=== PATIENT | female | born 1965 | race Caucasian/White ===

== ENCOUNTER 2020-10-16 13:00 | Emergency (ER) | payer OTHER ==
[2020-10-16 13:14] VITALS: TEMP 98.6
--- NOTE | 2020-10-16 13:32 | ED ---
General Adult HPI - General Source: patient Mode of arrival: wheelchair Limitations: no limitations <Kieran Green Gautam - Last Filed: 10/16/20 13:31> <Elgin Germain Yaw - Last Filed: 10/16/20 17:45> - General Chief complaint: Psychiatric Symptoms Stated complaint: drug withdrawals Time Seen by Provider: 10/16/20 13:17 - History of Present Illness Initial comments: Dictation was produced using [employer] dictation software. please excuse any grammatical, word or spelling errors. Chief Complaint: 55-year-old female with history of polysubstance abuse presents with sister for drug rehabilitation History of Present Illness: 55-year-old female she is brought in by her sister. Patient is a poor historian. She states that she does abuse a lot of illicit substances. Sister who brought patient to the emergency department reports that patient has been a threat to herself. She has been trying to detoxify herself from drugs. She is a long-standing history of using heroin, methamphetamines, cocaine etc. She currently lives with her brother however because of her clinical condition states that she's not stable to be at home with them. Patient is size any suicidal or homicidal ideation. She does have visual hallucinations where she sees things moving. Has any auditory or tactile hallucinations. The ROS documented in this emergency department record has been reviewed and confirmed by me. Those systems with pertinent positive or negative responses have been documented in the HPI. All other systems are other negative and/or noncontributory. PHYSICAL EXAM: General Impression: Alert and oriented x3, not in acute distress HEENT: Normocephalic atraumatic, extra-ocular movements intact, pupils equal and reactive to light bilaterally, mucous membranes moist. Cardiovascular: Heart regular rate and rhythm Chest: Able to complete full sentences, no retractions, no tachypnea Abdomen: abdomen soft, non-tender, non-distended, no organomegaly Musculoskeletal: Pulses present and equal in all extremities, no peripheral edema Motor: no focal deficits noted Neurological: CN II-XII grossly intact, no focal motor or sensory deficits noted Skin: Intact with no visualized rashes Psych: Tangential and pressured speech ED course: 55-year-old female with illicit drug abuse history presents with clinical presentation consistent with nonspecific psychosis. Vital signs upon arrival are within acceptable limits. Sister signed petition on behalf of the patient. She states that she is a threat to herself and will need medical stabilization. Patient has pressured and tangential speech. (Kieran Green) - Related Data Home Medications Medication Instructions Recorded Confirmed Atorvastatin [Lipitor] 20 mg PO HS 10/16/20 10/16/20 Glimepiride [Amaryl] 2 mg PO DAILY 10/16/20 10/16/20 lisinopriL [Zestril] 2.5 mg PO DAILY 10/16/20 10/16/20 metFORMIN HCL 1,000 mg PO BID-W/MEALS 10/16/20 10/16/20 Allergies Allergy/AdvReac Type Severity Reaction Status Date / Time No Known Allergies Allergy Verified 10/16/20 13:14 Review of Systems ROS Other: All systems not noted in ROS Statement are negative. <Kieran Green - Last Filed: 10/16/20 13:31> ROS Other: All systems not noted in ROS Statement are negative. <Elgin Germain - Last Filed: 10/16/20 17:45> ROS Statement: Those systems with pertinent positive or pertinent negative responses have been documented in the HPI. Past Medical History Past Medical History: Diabetes Mellitus, GERD/Reflux, Hyperlipidemia, Hypertension History of Any Multi-Drug Resistant Organisms: None Reported Past Surgical History: Hysterectomy Past Psychological History: Anxiety, Depression Smoking Status: Current every day smoker Past Alcohol Use History: None Reported Past Drug Use History: Cocaine, Heroin, Marijuana, Methamphetamine <Kieran Green - Last Filed: 10/16/20 13:31> General Exam Limitations: no limitations <Kieran Green - Last Filed: 10/16/20 13:31> Course <Elgin Germain - Last Filed: 10/16/20 17:45> Vital Signs 10/16/20 10/16/20 13:09 16:00 Temperature 98.6 F 98.6 F Pulse Rate 99 86 Respiratory 16 18 Rate Blood Pressure 134/74 127/89 O2 Sat by Pulse 96 99 Oximetry - Reevaluation(s) Reevaluation #1: 10/16/20 16:39 Patient medically cleared for EPS. (Elgin Germain) Medical Decision Making - Lab Data Result diagrams: 10/16/20 13:35 10/16/20 16:07 <Elgin Germain - Last Filed: 10/16/20 17:45> - Medical Decision Making Patient had been medically cleared and evaluated by EPS. She does have an issue with substance abuse but is not suicidal or homicidal. She's been cleared for discharge. She'll be given outpatient referrals. (Elgin Germain) - Lab Data Lab Results 10/16/20 10/16/20 10/16/20 Range/Units 13:35 13:35 13:35 WBC 9.5 (3.8-10.6) k/uL RBC 4.42 (3.80-5.40) m/uL Hgb 13.9 (11.4-16.0) gm/dL Hct 39.5 (34.0-46.0) % MCV 89.4 (80.0-100.0) fL MCH 31.5 (25.0-35.0) pg MCHC 35.2 (31.0-37.0) g/dL RDW 12.1 (11.5-15.5) % Plt Count 324 (150-450) k/uL MPV 7.1 Neutrophils % 80 % Lymphocytes % 12 % Monocytes % 6 % Eosinophils % 1 % Basophils % 1 % Neutrophils # 7.6 (1.3-7.7) k/uL Lymphocytes # 1.2 (1.0-4.8) k/uL Monocytes # 0.5 (0-1.0) k/uL Eosinophils # 0.1 (0-0.7) k/uL Basophils # 0.1 (0-0.2) k/uL Sodium 132 L (137-145) mmol/L Potassium 3.6 (3.5-5.1) mmol/L Chloride 90 L (98-107) mmol/L Carbon Dioxide 28 (22-30) mmol/L Anion Gap 14 mmol/L BUN 43 H (7-17) mg/dL Creatinine 1.10 H (0.52-1.04) mg/dL Est GFR (CKD-EPI)AfAm 65 (>60 ml/min/1.73 sqM) Est GFR (CKD-EPI)NonAf 57 (>60 ml/min/1.73 sqM) Glucose 408 H (74-99) mg/dL Lactic Ac Sepsis Rflx Plasma Lactic Acid Carlos (0.7-2.0) mmol/L Calcium 10.3 H (8.4-10.2) mg/dL Creatine Kinase 595 H (30-135) U/L Urine Opiates Screen Not Detected (NotDetected) Ur Oxycodone Screen Not Detected (NotDetected) Urine Methadone Screen Not Detected (NotDetected) Ur Propoxyphene Screen Not Detected (NotDetected) Ur Barbiturates Screen Not Detected (NotDetected) U Tricyclic Antidepress Not Detected (NotDetected) Ur Phencyclidine Scrn Not Detected (NotDetected) Ur Amphetamines Screen Detected H (NotDetected) U Methamphetamines Scrn Detected H (NotDetected) U Benzodiazepines Scrn Not Detected (NotDetected) Urine Cocaine Screen Detected H (NotDetected) U Marijuana (THC) Screen Detected H (NotDetected) Coronavirus (PCR) (Not Detectd) 10/16/20 10/16/20 10/16/20 Range/Units 13:35 13:35 14:10 WBC (3.8-10.6) k/uL RBC (3.80-5.40) m/uL Hgb (11.4-16.0) gm/dL Hct (34.0-46.0) % MCV (80.0-100.0) fL MCH (25.0-35.0) pg MCHC (31.0-37.0) g/dL RDW (11.5-15.5) % Plt Count (150-450) k/uL MPV Neutrophils % % Lymphocytes % % Monocytes % % Eosinophils % % Basophils % % Neutrophils # (1.3-7.7) k/uL Lymphocytes # (1.0-4.8) k/uL Monocytes # (0-1.0) k/uL Eosinophils # (0-0.7) k/uL Basophils # (0-0.2) k/uL Sodium (137-145) mmol/L Potassium (3.5-5.1) mmol/L Chloride (98-107) mmol/L Carbon Dioxide (22-30) mmol/L Anion Gap mmol/L BUN (7-17) mg/dL Creatinine (0.52-1.04) mg/dL Est GFR (CKD-EPI)AfAm (>60 ml/min/1.73 sqM) Est GFR (CKD-EPI)NonAf (>60 ml/min/1.73 sqM) Glucose (74-99) mg/dL Lactic Ac Sepsis Rflx Y Plasma Lactic Acid Carlos 2.7 H* (0.7-2.0) mmol/L Calcium (8.4-10.2) mg/dL Creatine Kinase (30-135) U/L Urine Opiates Screen (NotDetected) Ur Oxycodone Screen (NotDetected) Urine Methadone Screen (NotDetected) Ur Propoxyphene Screen (NotDetected) Ur Barbiturates Screen (NotDetected) U Tricyclic Antidepress (NotDetected) Ur Phencyclidine Scrn (NotDetected) Ur Amphetamines Screen (NotDetected) U Methamphetamines Scrn (NotDetected) U Benzodiazepines Scrn (NotDetected) Urine Cocaine Screen (NotDetected) U Marijuana (THC) Screen (NotDetected) Coronavirus (PCR) Not Detected (Not Detectd) 10/16/20 10/16/20 Range/Units 16:07 16:07 WBC (3.8-10.6) k/uL RBC (3.80-5.40) m/uL Hgb (11.4-16.0) gm/dL Hct (34.0-46.0) % MCV (80.0-100.0) fL MCH (25.0-35.0) pg MCHC (31.0-37.0) g/dL RDW (11.5-15.5) % Plt Count (150-450) k/uL MPV Neutrophils % % Lymphocytes % % Monocytes % % Eosinophils % % Basophils % % Neutrophils # (1.3-7.7) k/uL Lymphocytes # (1.0-4.8) k/uL Monocytes # (0-1.0) k/uL Eosinophils # (0-0.7) k/uL Basophils # (0-0.2) k/uL Sodium 132 L (137-145) mmol/L Potassium 3.5 (3.5-5.1) mmol/L Chloride 93 L (98-107) mmol/L Carbon Dioxide 30 (22-30) mmol/L Anion Gap 9 mmol/L BUN 39 H (7-17) mg/dL Creatinine 0.83 (0.52-1.04) mg/dL Est GFR (CKD-EPI)AfAm >90 (>60 ml/min/1.73 sqM) Est GFR (CKD-EPI)NonAf 80 (>60 ml/min/1.73 sqM) Glucose 295 H (74-99) mg/dL Lactic Ac Sepsis Rflx Plasma Lactic Acid Carlos 1.3 (0.7-2.0) mmol/L Calcium 10.0 (8.4-10.2) mg/dL Creatine Kinase (30-135) U/L Urine Opiates Screen (NotDetected) Ur Oxycodone Screen (NotDetected) Urine Methadone Screen (NotDetected) Ur Propoxyphene Screen (NotDetected) Ur Barbiturates Screen (NotDetected) U Tricyclic Antidepress (NotDetected) Ur Phencyclidine Scrn (NotDetected) Ur Amphetamines Screen (NotDetected) U Methamphetamines Scrn (NotDetected) U Benzodiazepines Scrn (NotDetected) Urine Cocaine Screen (NotDetected) U Marijuana (THC) Screen (NotDetected) Coronavirus (PCR) (Not Detectd) Disposition <Kieran Green - Last Filed: 10/16/20 13:31> Is patient prescribed a controlled substance at d/c from ED?: No Time of Disposition: 17:44 <Elgin Germain - Last Filed: 10/16/20 17:45> Clinical Impression: Drug-induced psychotic disorder Disposition: HOME SELF-CARE Condition: Fair Instructions (If sedation given, give patient instructions): Methamphetamine Abuse (ED) Additional Instructions: Patient will follow-up with [facility] Referrals: None,Stated [REFERRING] - 1-2 days oJe Kapoor [STAFF PHYSICIAN] - 1-2 days
[2020-10-16 13:53] LABS: Basophils # (A) 0.1 k/uL (0-0.2); Basophils % (A) 1 %; Eosinophils # (A) 0.1 k/uL (0-0.7); Eosinophils % (A) 1 %; HCT 39.5 % (34.0-46.0); HGB 13.9 gm/dL (11.4-16.0); Lymphocytes # (A) 1.2 k/uL (1.0-4.8); Lymphocytes % (A) 12 %; MCH 31.5 pg (25.0-35.0); MCHC 35.2 g/dL (31.0-37.0); MCV 89.4 fL (80.0-100.0); Mean Platelet Volume 7.1; Monocytes # (A) 0.5 k/uL (0-1.0); Monocytes % (A) 6 %; Neutrophils # (A) 7.6 k/uL (1.3-7.7); Neutrophils % (A) 80 %; Platelet Count 324 k/uL (150-450); RBC 4.42 m/uL (3.80-5.40); RDW 12.1 % (11.5-15.5); WBC 9.5 k/uL (3.8-10.6)
[2020-10-16] MEDS ORDERED: SODIUM CHLORIDE 0.9% 1,000 ML IV STA (14:18)
[2020-10-16 14:39] LABS: Calcium 10.3 mg/dL (8.4-10.2); Potassium 3.6 mmol/L (3.5-5.1)
[2020-10-16 16:20] VITALS: BP 127/89; PULSE 86; RESP 18
[2020-10-16 16:35] LABS: African American GFR (CKD) >90 (>60 ml/min/1.73 sqM); Anion Gap 9 mmol/L; Blood Urea Nitrogen 39 mg/dL (7-17); Carbon Dioxide 30 mmol/L (22-30); Chloride 93 mmol/L (98-107); Glucose 295 mg/dL (74-99); Non-African American GFR(CKD) 80 (>60 ml/min/1.73 sqM); Potassium 3.5 mmol/L (3.5-5.1); Sodium 132 mmol/L (137-145)
[2020-10-16 17:33] LABS: Amphetamine Screen,Urine Detected (NotDetected); Barbiturate Screen,Urine Not Detected (NotDetected); Benzodiazepines Screen,Urine Not Detected (NotDetected); Cocaine Screen,Urine Detected (NotDetected); Methadone Screen, Urine Not Detected (NotDetected); Opiate Screen,Urine Not Detected (NotDetected); Oxycodone Screen, Urine Not Detected (NotDetected); Phencyclidine Screen,Urine Not Detected (NotDetected); Tricyclic Antidepressant,Urine Not Detected (NotDetected); Urn Cannabinoid Scrn Detected (NotDetected)
== END 2020-10-16 18:44 | disposition home or self-care (01) ==
LOC: EC 13:00
DX: F19.951 Other psychoactive substance use, unspecified with psychoactive substance-induced psychotic disorder with hallucinations (principal); E11.9 Type 2 diabetes mellitus without complications; E78.5 Hyperlipidemia, unspecified; F17.200 Nicotine dependence, unspecified, uncomplicated; I10 Essential (primary) hypertension; F41.9 Anxiety disorder, unspecified; F32.9 Major depressive disorder, single episode, unspecified; F12.90 Cannabis use, unspecified, uncomplicated; Z79.84 Long term (current) use of oral hypoglycemic drugs; Z79.899 Other long term (current) drug therapy
CPT/HCPCS: 36415; 80048; 80306; 82550; 83605; 85025; 87635; 96360; 99283; 99284

== ENCOUNTER → 2023-02-11 | Outpatient (CLI) | payer OTHER ==
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
== END | disposition home or self-care (01) ==
LOC: RADMRIMAIN 13:08
PROVIDERS: ATTEND Orthopaedic Surgery
DX: M50.221 Other cervical disc displacement at C4-C5 level (principal); M50.322 Other cervical disc degeneration at C5-C6 level; M47.812 Spondylosis without myelopathy or radiculopathy, cervical region; M48.02 Spinal stenosis, cervical region; M99.71 Connective tissue and disc stenosis of intervertebral foramina of cervical region
CPT/HCPCS: 72141

== ENCOUNTER → 2023-05-20 | Outpatient (CLI) | payer OTHER ==
[2023-05-20 13:02] VITALS: BP 147/89; PULSE 94; RESP 16; TEMP 98.6
--- NOTE | 2023-05-20 14:32 | P.PAINPG ---
Objective - Vital Signs Vital signs: Intake & Output 05/19/23 05/20/23 05/20/23 18:59 06:59 18:59 Weight 77.111 kg PQRS Measure Charge Sheet Comment: HISTORY OF PRESENT ILLNESS: A 58 yr old female as a referral from [facility] presents today w severe and chronic neck pain x 6 mo secondary to DDD, spondylosis and facet arthropathy without myelopathy for evaluation. Pt states pain level is provoked at 8/10 in intensity, constant, localized in the mid to lower cervical spine, predominantly axial, burning in character w occasional shooting pain towards the shoulders and UEs. Pain is provoked by cold weather, walking, forward flexion. Pain is alleviated by PT integrated w massage x 6 wks which ended in Apr 2023, alternating heat & ice, medications (Flexeril, Lyrica, Mobic), topical, repositioning and rest. Cervical disability pain score at 21. PMH: OA, NIDDM II, GERD, Hyperlipidemia, HTN, MDD/ Anxiety PSH: Hysterectomy SH: Daily tobacco use, No ETOH abuse, Hx of Cocaine/ Heroin/ Methamphetamine Abuse, +Cannabis Use FH: Non contributory All: See list Meds: See list REVIEW OF ORGAN SYSTEMS: CONSTITUTIONAL: No fevers or chills. No recent weight loss. NEUROLOGICAL: + numbness and tingling along the distal extremities. No seizure disorders or headaches. MUSCULOSKELETAL: + pain PSYCHIATRIC: Denies current depression or suicidal thoughts. Physical Examinations : Constitutional : Cooperative , not in acute distress . Neurologic : Cranial nerve II to XII intact. No focal neurological deficits. Psychiatric : alert & oriented x 3. Matching mood & appropriate affect. Judgment & insight intact. Musculoskeletal : Cervical Spine Motor strength in the deltoid and biceps: Normal right side. Normal Left side Motor strength biceps and the wrist extensors: Normal right side . Normal left side Motor strength in the triceps muscle: Normal right side. Normal left side Deep tendon reflexes: Normal at the biceps. Normal at Brachioradialis. Normal at triceps Vertebral body tenderness to deep palpation over Cervical facet loading test: positive bilaterally Spurling test: positive bilaterally Neck distraction test: positive bilaterally Rodríguez sign: positive bilaterally Lumbar spine Motor strength lower extremities ,thigh and legs 5/5 Right side , 5/5 Left side Deep tendon reflexes : Normal Knee Jerk. Normal Ankle Jerk Vertebral body tenderness over C6 Leslie Test positive over C6-C7 Lumbar facet Loading Test: positive Right / positive Left Range of motion of the lumbar spine Flexion 30 degrees, extension 10 degrees Straight Leg Raise test: Left/ Right positive at degrees Des test: positive right / positive left. Severe tenderness over the Sacroiliac joint on the Right / Left sides Gaenslen test: positive bilaterally Seated flexion test: positive bilaterally. Sacral spine : Severe tenderness over the Sacroiliac joint: right side / left side Range of motion: Flexion of the lumbar spine <60 degrees Range of motion: Extension of the lumbar spine <20 degrees Gaenslen's Test positive Des test: positive right side / left side Thigh Thrust Test Sacral Thrust Test Imaging: MRI noncontrast of the cervical spine from reviewed Assessment/ Plan : Cervical C4-C5 disc bulge, Cervical DDD Recommendation of NATY C6-C7 #1. May need a series of injections for optimal pain relief. Risks, benefits of procedure discussed and patient verbalized understanding. Admits to anti- coagulant use or medical history of diabetes. Protocol for discontinuation/ continuation of medications jyothi procedure discussed. Minimal anesthesia provided, if clinically indicated, consisting of Versed and Fentanyl. All questions answered. I have spent greater than 30 minutes on patient care today. Dr Pacheco was available by phone for the evaluation of this patient. The time was used to review the medical records including relevant urine studies and Prescription history (MAPs), review of the available imaging, evaluation and examination of the patient, coordination of care with the medical staff and if applicable referring physicians, as well as creation of the medical record Home Medications: Ambulatory Orders Atorvastatin [Lipitor] 20 mg PO HS 10/16/20 Glimepiride [Amaryl] 2 mg PO DAILY 10/16/20 lisinopriL [Zestril] 2.5 mg PO DAILY 10/16/20 metFORMIN HCL [Glucophage] 1,000 mg PO BID-W/MEALS 10/16/20 Controlled Substance Measures - Controlled Substance Measures Is patient prescribed a controlled substance at discharge?: No
== END ==
LOC: PNWHC3 12:16
PROVIDERS: ATTEND Specialist
DX: M54.12 Radiculopathy, cervical region (principal); M47.812 Spondylosis without myelopathy or radiculopathy, cervical region; M50.30 Other cervical disc degeneration, unspecified cervical region; M50.221 Other cervical disc displacement at C4-C5 level
CPT/HCPCS: 99211

== ENCOUNTER 2023-06-04 09:26 | Day surgery (SDC) | payer OTHER ==
[2023-06-03 13:42] VITALS: BMI 27.4
[2023-06-04] MEDS ORDERED: LACTATED RINGERS 1,000 ML IV SCH (09:30)
[2023-06-04 10:49] LABS: Glucose,Whole Blood 193 mg/dL (70-110)
[2023-06-04 10:54] VITALS: TEMP 97.4
[2023-06-04] MEDS ORDERED: IOPAMIDOL M200 10 ML VIAL ONE (10:59)
[2023-06-04] MEDS ORDERED: DEXAMETHASONE SOD PHOSPHATE 10 MG/ML 1 ML VIAL ONE (10:59)
--- NOTE | 2023-06-04 11:15 | P.PCN ---
Date of Procedure: 06/04/23 Procedure(s) Performed: . PROCEDURE 1. Cervical epidural steroid injection under fluoroscopic guidance, C6-7 (fluoroscopy images available in the radiology department ) 2. Cervical epidurogram. PREOPERATIVE DIAGNOSIS: 1- Cervical Degenerative Disc Diseases 2-cervical spondylosis with cervical Facet arthropathy without myelopathy.3-cervical spinal stenosis POSTOPERATIVE DIAGNOSIS: : 1- Cervical Degenerative Disc Diseases , 2-cervical spondylosis with cervical Facet arthropathy without myelopathy. 3-cervical spinal stenosis ANESTHESIA: Local anesthesia with lidocaine 1% 3 ml only EBL 0 PROCEDURE INDICATION: The patient with neck pain and radiculitis unresponsive to conservative treatment consents for procedure. PROCEDURE DESCRIPTION / TECHNIQUE: The patient was seen and identified in the preoperative area. Risks, benefits, complications, including but not limited to infections ,bleeding , allergic reactions to the medications ,and not complete pain releife, and alternatives were discussed with the patient, the patient agreed to proceed with the procedure and signed the consent. Patient was taken to the OR and time out was completed. The patient was placed in the prone position on the procedure table. A pillow was placed under the patients chest to increase the cervical interlaminar space. The cervical area was prepped and draped in the usual sterile fashion. Vital signs were closely monitored during the procedure. Using anterior-posterior fluoroscopy, the C6-7 interlaminar space was identified and the skin over this site was marked and then infiltrated with 1% lidocaine subcutaneously. Subsequently, a 20-gauge 3-1/2-inch Tuohy epidural needle was inserted and advanced toward the epidural space by means of the ``hanging-drop technique and guided by AP and lateral fluoroscopy. The correct needle position in the epidural space was verified with the injection of 2 mL of the water soluble contrast dye [id number] and observing an excellent epidurogram with the epidural spread of the dye, after negative aspiration for blood and CSF and in the absence of paresthesias. then, mixture containing 15 mg Dexamethasone and 2 ml of preservative-free normal saline injected and a washout of epidurogram was seen. Needle was withdrawn intact, skin was cleansed, and bandages were applied. Complications= none. Disposition= patient was placed in supine position and transferred to the recovery room area in stable condition and there was no evidence of upper or lower extremity motor or sensory deficit after the procedure patient was discharged from recovery room after discharge criteria met and home discharge instructions was given by the staff and patient will follow with the pain clinic in 2-4 weeks
[2023-06-04 11:45] VITALS: PULSE 81; RESP 20
--- NOTE | 2023-06-04 11:47 | FL ---
EXAMINATION TYPE: FL guided pain mgmt statistic Intraoperative/procedural fluoroscopic services were provided. Total fluoroscopy time is 2.5 seconds images to PACS. Please see the operative/procedural n ote for further details. DAP: [id number] [id number]
[2023-06-04 12:10] VITALS: BP 139/87
== END 2023-06-04 11:48 | disposition home or self-care (01) ==
LOC: ORPAIN 09:26
PROVIDERS: ATTEND Specialist
DX: M50.123 Cervical disc disorder at C6-C7 level with radiculopathy (principal); M47.22 Other spondylosis with radiculopathy, cervical region; M48.02 Spinal stenosis, cervical region; E11.9 Type 2 diabetes mellitus without complications
CPT/HCPCS: 62321; J1100; Q9966

== ENCOUNTER → 2023-06-24 | Outpatient (CLI) | payer OTHER ==
[2023-06-24 14:18] VITALS: BP 142/82; PULSE 84; RESP 15; TEMP 97.9
--- NOTE | 2023-06-24 14:36 | P.PAINPG ---
PQRS Measure Charge Sheet Comment: HISTORY OF PRESENT ILLNESS: A 58 yr old female presents today w severe and chronic neck pain x 6 mo secondary to DDD, spondylosis and facet arthropathy without myelopathy for evaluation s/p NATY C6-C7 #1. Pt states she experienced 80% pain relief x 1 wks s/p procedure. Pt states pain level is provoked at 8/10 in intensity, constant, localized in the mid to lower cervical spine, predominantly axial, burning in character w occasional shooting pain towards the shoulders and UEs. Pain is provoked by cold weather, walking, forward flexion. Pain is alleviated by PT integrated w massage x 6 wks which ended in Apr 2023, alternating heat & ice, medications, topical, repositioning and rest. Cervical disability pain score at 20. Interventional procedures include NATY C6-C7 x1 Medications include Flexeril, Lyrica, Mobic REVIEW OF ORGAN SYSTEMS: CONSTITUTIONAL: No fevers or chills. No recent weight loss. NEUROLOGICAL: + numbness and tingling along the distal extremities. No seizure disorders or headaches. MUSCULOSKELETAL: + pain PSYCHIATRIC: Denies current depression or suicidal thoughts. Physical Examinations : Constitutional : Cooperative , not in acute distress . Neurologic : Cranial nerve II to XII intact. No focal neurological deficits. Psychiatric : alert & oriented x 3. Matching mood & appropriate affect. Judgment & insight intact. Musculoskeletal : Cervical Spine Motor strength in the deltoid and biceps: Normal right side. Normal Left side Motor strength biceps and the wrist extensors: Normal right side . Normal left side Motor strength in the triceps muscle: Normal right side. Normal left side Deep tendon reflexes: Normal at the biceps. Normal at Brachioradialis. Normal at triceps Vertebral body tenderness to deep palpation over Cervical facet loading test: positive bilaterally Spurling test: positive bilaterally Neck distraction test: positive bilaterally Rodríguez sign: positive bilaterally Lumbar spine Motor strength lower extremities ,thigh and legs 5/5 Right side , 5/5 Left side Deep tendon reflexes : Normal Knee Jerk. Normal Ankle Jerk Vertebral body tenderness over C6 Leslie Test positive over C6-C7 Lumbar facet Loading Test: positive Right / positive Left Range of motion of the lumbar spine Flexion 30 degrees, extension 10 degrees Straight Leg Raise test: Left/ Right positive at degrees Des test: positive right / positive left. Severe tenderness over the Sacroiliac joint on the Right / Left sides Gaenslen test: positive bilaterally Seated flexion test: positive bilaterally. Sacral spine : Severe tenderness over the Sacroiliac joint: right side / left side Range of motion: Flexion of the lumbar spine <60 degrees Range of motion: Extension of the lumbar spine <20 degrees Gaenslen's Test positive Des test: positive right side / left side Thigh Thrust Test Sacral Thrust Test Imaging: MRI noncontrast of the cervical spine from reviewed Assessment/ Plan : Cervical C4-C5 disc bulge, Cervical DDD Recommendation of follow up w Dr Collins to explore additional treatment options. Diclofenac gel 3% apply BID for pain Disp 1 tube w 1 RF. Use, side effects, adverse reactions and safe storage discussed. All questions answered. I have spent greater than 30 minutes on patient care today. Dr Pacheco was available by phone for the evaluation of this patient. The time was used to review the medical records including relevant urine studies and Prescription history (MAPs), review of the available imaging, evaluation and examination of the patient, coordination of care with the medical staff and if applicable referring physicians, as well as creation of the medical record - Pain Location Bilateral Neck Non-Pharmacological Interventions: Heat, Position/Reposition Pharmacological Interventions: Epidural, Scheduled Medication PQRS Narrative: Hx Alcohol Use (MH) No Home Medications: Ambulatory Orders Atorvastatin [Lipitor] 20 mg PO HS 10/16/20 Glimepiride [Amaryl] 2 mg PO DAILY 10/16/20 lisinopriL [Zestril] 2.5 mg PO DAILY 10/16/20 metFORMIN HCL [Glucophage] 1,000 mg PO BID-W/MEALS 10/16/20 Cyclobenzaprine [Flexeril] 10 mg PO TID 06/03/23 DULoxetine HCL [Cymbalta] 60 mg PO DAILY 06/03/23 Empagliflozin [Jardiance] 25 mg PO DAILY 06/03/23 Meloxicam [Mobic] 7.5 mg PO DAILY 06/03/23 Prazosin HCl 1 mg PO HS 06/03/23 Prazosin HCl 2 mg PO HS 06/03/23 Pregabalin [Lyrica] 75 mg PO Q8H 06/03/23 Vitamin D (Unknown Dose) 1 tab PO DAILY 06/03/23 hydrOXYzine HCL [Atarax] 50 mg PO Q6H PRN 06/03/23 traZODone HCL [Desyrel] 50 mg PO HS 06/03/23 Diclofenac Sodium Gel [Voltaren 1% Gel] 100 gm TOPICAL BID 30 Days #1 each 06/24/23 Controlled Substance Measures - Controlled Substance Measures Is patient prescribed a controlled substance at discharge?: No
== END ==
LOC: PNWHC3 13:44
PROVIDERS: ATTEND Specialist
DX: M50.323 Other cervical disc degeneration at C6-C7 level (principal); M50.221 Other cervical disc displacement at C4-C5 level; F12.90 Cannabis use, unspecified, uncomplicated
CPT/HCPCS: 99211

== ENCOUNTER → 2023-07-23 | Outpatient (CLI) | payer OTHER ==
[2023-07-23 08:51] VITALS: BP 96/60; PULSE 76; RESP 15; TEMP 98.6
--- NOTE | 2023-07-23 12:50 | P.PAINPG ---
PQRS Measure Charge Sheet Comment: HISTORY OF PRESENT ILLNESS: A 58 yr old female presents today w severe and chronic neck pain x 6 mo secondary to DDD, spondylosis and facet arthropathy without myelopathy for evaluation s/p NATY C6-C7 #1. Pt states she experienced 80% pain relief x 1 wks s/p procedure. Pt states pain level is provoked at 8/10 in intensity, constant, localized in the mid to lower cervical spine, predominantly axial, burning in character w occasional shooting pain towards the shoulders and UEs. Pain is provoked by cold weather, walking, forward flexion. Pain is alleviated by PT integrated w massage x 6 wks which ended in Apr 2023, alternating heat & ice, medications, topical, repositioning and rest. Cervical disability pain score at 20. Interventional procedures include NATY C6-C7 x1 Medications include Flexeril, Lyrica, Mobic REVIEW OF ORGAN SYSTEMS: CONSTITUTIONAL: No fevers or chills. No recent weight loss. NEUROLOGICAL: + numbness and tingling along the distal extremities. No seizure disorders or headaches. MUSCULOSKELETAL: + pain PSYCHIATRIC: Denies current depression or suicidal thoughts. Physical Examinations : Constitutional : Cooperative , not in acute distress . Neurologic : Cranial nerve II to XII intact. No focal neurological deficits. Psychiatric : alert & oriented x 3. Matching mood & appropriate affect. Judgment & insight intact. Musculoskeletal : Cervical Spine BL Trapezius and Clavicular TTP, R> L Motor strength in the deltoid and biceps: Normal right side. Normal Left side Motor strength biceps and the wrist extensors: Normal right side . Normal left side Motor strength in the triceps muscle: Normal right side. Normal left side Deep tendon reflexes: Normal at the biceps. Normal at Brachioradialis. Normal at triceps Vertebral body tenderness to deep palpation over Cervical facet loading test: positive bilaterally Spurling test: positive bilaterally Neck distraction test: positive bilaterally Rodríguez sign: positive bilaterally Lumbar spine Motor strength lower extremities ,thigh and legs 5/5 Right side , 5/5 Left side Deep tendon reflexes : Normal Knee Jerk. Normal Ankle Jerk Vertebral body tenderness Leslie Test positive Lumbar facet Loading Test: positive Right / positive Left Range of motion of the lumbar spine Flexion 30 degrees, extension 10 degrees Straight Leg Raise test: Left/ Right positive at degrees Des test: positive right / positive left. Severe tenderness over the Sacroiliac joint on the Right / Left sides Gaenslen test: positive bilaterally Seated flexion test: positive bilaterally. Sacral spine : Severe tenderness over the Sacroiliac joint: right side / left side Range of motion: Flexion of the lumbar spine <60 degrees Range of motion: Extension of the lumbar spine <20 degrees Gaenslen's Test positive Des test: positive right side / left side Thigh Thrust Test Sacral Thrust Test Imaging: MRI noncontrast of the cervical spine from reviewed Assessment/ Plan : Cervical C4-C5 disc bulge, Cervical DDD Recommendation of Stellate Ganglion Nerve Block #1. May need a series o f injections for optimal pain relief. Risks, benefits of procedure discussed and pt verbalized understanding. Protocol for discontinuation/ continuation of medications jyothi procedure discussed. All questions answered. I have spent greater than 30 minutes on patient care today. Dr Pacheco was available by phone for the evaluation of this patient. The time was used to review the medical records including relevant urine studies and Prescription history (MAPs), review of the available imaging, evaluation and examination of the patient, coordination of care with the medical staff and if applicable referring physicians, as well as creation of the medical record PQRS Narrative: Hx Alcohol Use (MH) No Home Medications: Ambulatory Orders Atorvastatin [Lipitor] 20 mg PO HS 10/16/20 Glimepiride [Amaryl] 2 mg PO DAILY 10/16/20 lisinopriL [Zestril] 2.5 mg PO DAILY 10/16/20 metFORMIN HCL [Glucophage] 1,000 mg PO BID-W/MEALS 10/16/20 Cyclobenzaprine [Flexeril] 10 mg PO TID 06/03/23 DULoxetine HCL [Cymbalta] 60 mg PO DAILY 06/03/23 Empagliflozin [Jardiance] 25 mg PO DAILY 06/03/23 Meloxicam [Mobic] 7.5 mg PO DAILY 06/03/23 Prazosin HCl 1 mg PO HS 06/03/23 Prazosin HCl 2 mg PO HS 06/03/23 Pregabalin [Lyrica] 75 mg PO Q8H 06/03/23 Vitamin D (Unknown Dose) 1 tab PO DAILY 06/03/23 hydrOXYzine HCL [Atarax] 50 mg PO Q6H PRN 06/03/23 traZODone HCL [Desyrel] 50 mg PO HS 06/03/23 Diclofenac Sodium Gel [Voltaren 1% Gel] 100 gm TOPICAL BID 30 Days #1 each 06/24/23 Controlled Substance Measures - Controlled Substance Measures Is patient prescribed a controlled substance at discharge?: No
== END ==
LOC: PNWHC3 08:26
PROVIDERS: ATTEND Specialist
DX: M50.30 Other cervical disc degeneration, unspecified cervical region (principal); M50.221 Other cervical disc displacement at C4-C5 level; F12.90 Cannabis use, unspecified, uncomplicated
CPT/HCPCS: 99211

== ENCOUNTER → 2023-08-06 | Day surgery (SDC) | payer OTHER ==
[2023-08-04 15:29] VITALS: BMI 27.6
[2023-08-06 11:37] LABS: Glucose,Whole Blood 271 mg/dL (70-110)
[2023-08-06 11:48] VITALS: BP 103/75; PULSE 86; RESP 16; TEMP 97
--- NOTE | 2023-08-06 12:25 | P.PN ---
Progress Note - Text Progress Note Date: 08/06/23 This is 58 years old female with a chronic history of severe neck pain with radiation to the shoulder and upper extremity bilaterally, patient diagnosed with cervical degenerative disc disease cervical on the low side with cervical facet arthropathy and cervical stenosis, patient was scheduled to have bilateral stellate ganglion block, and I discussed with the patient that the best option will be ,to do cervical epidural steroid injection at C6-7 level which will be more beneficial to the patient, will tried to get approval from the insurance, to change the procedure, but her insurance require, prior authorization ,for this reason we will reschedule patient in the near future for cervical epidural steroid injection at C6-7 level, after we get approval from the insurance
== END ==
LOC: ORPAIN 11:02
PROVIDERS: ATTEND Specialist
DX: Z53.8 Procedure and treatment not carried out for other reasons (principal); M47.812 Spondylosis without myelopathy or radiculopathy, cervical region; M50.323 Other cervical disc degeneration at C6-C7 level; M48.02 Spinal stenosis, cervical region; G89.29 Other chronic pain

== ENCOUNTER 2023-09-15 08:48 | Day surgery (SDC) | payer OTHER ==
[2023-09-01 16:27] VITALS: BMI 27.4
[~2023-09-15 08:48] MED LIST: LACTATED RINGERS 1,000 ML IV SCH
[2023-09-15 09:30] LABS: Glucose,Whole Blood 210 mg/dL (70-110)
[2023-09-15 09:50] VITALS: TEMP 97.1
[2023-09-15] MEDS ORDERED: IOPAMIDOL M200 10 ML VIAL ONE (10:13)
[2023-09-15] MEDS ORDERED: DEXAMETHASONE SOD PHOSPHATE 10 MG/ML 1 ML VIAL ONE (10:13)
--- NOTE | 2023-09-15 10:22 | P.PCN ---
Date of Procedure: 09/15/23 Surgeon: Alverto Baig Pathology: none sent Condition: stable Disposition: PACU Description of Procedure: PROCEDURE 1. Cervical epidural steroid injection under fluoroscopic guidance, C7-T1 right paramedian approach. 2. Cervical epidurogram. : PREOPERATIVE DIAGNOSIS: Cervical radiculopathy, cervical spondylosis without myelopathy POSTOPERATIVE DIAGNOSIS: : Same as above ANESTHESIA: Local anesthesia only with 1% lidocaine . EBL 0 PROCEDURE INDICATION: The patient with neck pain and radiculopathy unresponsive to conservative treatment consents for procedure. PROCEDURE DESCRIPTION / TECHNIQUE: The patient was seen and identified in the preoperative area. Risks, benefits, complications, including but not limited to infections ,bleeding , allergic reactions to the medications ,and not complete pain relief, and alternatives were discussed with the patient, the patient agreed to proceed with the procedure and signed the consent. Patient was taken to the OR and time out was completed. The patient was placed in the prone position on the procedure table. A pillow was placed under the patients chest to increase the flexion of the cervical spine . The cervical area was prepped and draped in the usual sterile fashion. Vital signs were closely monitored during the procedure. Conscious sedation was used during the procedure to decrease patients anxiety. Using anterior-posterior fluoroscopy, the C7-T1 interlaminar space was identified and the skin over this site was marked and then infiltrated with 1% lidocaine subcutaneously. Subsequently, a 20-gauge 3-1/2-inch Tuohy epidural needle was inserted and advanced toward the epidural space by means of loss of resistance to air technique and guided by AP and lateral fluoroscopy. The needle tip contacted the lamina of T1 vertebra first, then it was walked off bone and into the epidural space using the loss of to air and fluoroscopic guidance to identify the epidural space. The correct needle position in the epidural space was verified with the injection of 1 mL of the water soluble contrast dye Isovue and observing an excellent epidurogram with the epidural spread of the dye, after negative aspiration for blood and CSF and in the absence of paresthesias. Again after negative aspiration, a 2 ml mixture containing 10 mg of Decadron and 1 ml of preservative free Normal Saline solution was injected and a washout of epidurogram was seen. Needle was withdrawn intact, skin was cleansed, and bandages were applied. A copy of the needle placement picture was saved to the fluoroscopy machine.
[2023-09-15 10:38] VITALS: RESP 16
[2023-09-15 10:41] LABS: Glucose,Whole Blood 180 mg/dL (70-110)
[2023-09-15 11:24] VITALS: BP 153/74; PULSE 78
--- NOTE | 2023-09-15 11:47 | FL ---
EXAMINATION TYPE: FL guided pain mgmt statistic DATE OF EXAM: 09/15/2023 HISTORY: Fluoroscopy time Total dose area product (DAP) in uGy*m?, mGy*cm? (or similar): 0.62903 IMPRESSION: 1. Fluoroscopy time.
== END 2023-09-15 10:52 | disposition home or self-care (01) ==
LOC: ORPAIN 08:48
PROVIDERS: ATTEND Anesthesiology
DX: M47.22 Other spondylosis with radiculopathy, cervical region (principal); E11.9 Type 2 diabetes mellitus without complications; M21.371 Foot drop, right foot; Z79.899 Other long term (current) drug therapy
CPT/HCPCS: 62321; J1100; Q9966